=== PATIENT | male | born 1995 | race Caucasian/White ===

== ENCOUNTER 2024-07-01 11:16 | Emergency (ER) | payer OTHER, SELFPAY ==
--- NOTE | ~2024-07-01 | XR_ITS ---
Clinical Indication: Chest pain PA and lateral views of the chest: Comparison: None Findings: The lungs are clear, without evidence of focal consolidation or pleural effusion. Cardiome diastinal silhouette is within normal limits. Bones and soft tissues are unremarkable. Impression: Normal chest. Reviewed, dictated and finalized at location . Impression: Normal chest.
--- NOTE | 2024-07-01 11:18 | ECG_ITS ---
Test Date: 2024-07-01 11:22:55 Measurements Intervals [place] Rate: 70 P: 66 DC: 125 QRS: 75 QRSD: 90 T: 48 QT: 367 QTc: 399 Interpretive Statements SINUS RHYTHM NORMAL ELECTROCARDIOGRAM No previous ECG available for comparison Electronically Signed On 07-02-2024 07:23:01 CDT by Benedicto Paz M.D.
[2024-07-01 11:20] VITALS: BP 106/61; PULSE 67; RESP 16; TEMP 36.8; O2SAT 100
[2024-07-01 11:35] LABS: Basophils Percent Auto 0.9 % (0.2-1.2); Eosinophils Absolute Auto 0.1 K/mm3 (0-0.3); Eosinophils Percent Auto 1.5 % (0-4.4); Hematocrit 50.6 % (42.0-52.0); Hemoglobin 17.3 g/dL (14.0-18.0); Immature Granulocyte Absolute 0.01 K/mm3 (0.00-0.031); Immature Granulocyte Percent A 0.3 % (0-0.5); Lymphocytes Absolute Auto 1.56 K/mm3 (0.9-3.2); Lymphocytes Percent Auto 45.6 % (18.3-44.2); Mean Corpuscular HGB Conc 34.2 g/dl (32-36); Mean Corpuscular Hemoglobin 31.1 pg (26-34); Mean Platelet Volume 8.5 fl (7.4-10.4); Monocytes Absolute Auto 0.4 K/mm3 (0.1-0.6); Monocytes Percent Auto 12.3 % (2.6-8.5); Neutrophils Absolute Auto 1.4 K/mm3 (1.3-6.7); Neutrophils Percent Auto 39.4 % (45.5-73.1); Platelet Count Result 221 k/mm3 (150-375); Red Blood Count 5.56 M/mm3 (4.6-6.20); Red Cell Distribution Width 11.6 % (11.5-14.5); White Blood Count 3.4 K/mm3 (4.5-10.0)
[2024-07-01 11:47] LABS: Prothrombin Time 13.3 Seconds (11.1-14.7)
[2024-07-01 11:48] LABS: Partial Thromboplastin Time 30.4 Seconds (22.3-36.8)
[2024-07-01 11:50] LABS: Alanine Aminotransferase 30 U/L (6-50); Albumin Level 4.6 g/dL (3.5-5.1); Alkaline Phosphatase 54 U/L (38-126); Anion Gap 10 mmol/L (4-12); Aspartate Amino Transferase 31 U/L (17-59); Bilirubin,Total 0.6 mg/dL (0.2-1.3); Blood Urea Nitrogen 16 mg/dL (9-20); Calcium 9.1 mg/dL (8.4-10.2); Carbon Dioxide 32 mmol/L (22-30); Chloride 97 mmol/L (98-107); Estimated CRCL calculation 93 ml/min; Estimated Glomerular Filt Rate > 60; Glucose 87 mg/dL (65-110); Lipase 91 U/L (23-300); Potassium 3.8 mmol/L (3.4-5.0); Sodium 139 mmol/L (137-145)
[2024-07-01 12:01] LABS: Troponin I < 0.012 ng/mL (0.000-0.034)
--- NOTE | 2024-07-01 12:53 | ED.CHESTPAIN ---
HPI - Chest Pain General Chief Complaint: Chest Pain Stated Complaint: cp and palpitations Time Seen by Provider: 07/01/24 12:38 History of Present Illness HPI narrative: This is a 28-year-old otherwise healthy male who presents the emergency department for evaluation of chest pain, discomfort and palpitations since 8:00 p.m. the prior evening. Patient was recently diagnosed with symptomatic COVID 3 days prior and states that he has been having myalgias, fever, chills and sweats. He started developing chest discomfort which is abnormal for him associated dyspnea. Patient was concerned and wanted it evaluated today. Has been taking Tylenol, Motrin, Sudafed for believe mint of his COVID symptoms with resolution of his headache, congestion and myalgias however he still has persistent chest discomfort and dyspnea for the last several hours. No leg swelling or history of DVT/PE. No recent procedures or long travel. Was otherwise in his normal state of health. He has been diagnosed with COVID previously was asymptomatic at that time. No around with similar symptoms. Related Data Allergies Allergy/AdvReac Type Severity Reaction Status Date / Time No Known Allergies Allergy Verified 07/01/24 11:17 Review of Systems Review of Systems: As reviewed above in the HPI Exam Narrative: GENERAL: [Well-appearing, well-nourished, and in no acute distress.] HEAD: [Normocephalic, atraumatic.] EYES: [PERRLA and EOMI.] ENT: Nares clear, no rhinorrhea or epistaxis. Mucous membranes moist. NECK: Supple. CHEST: [Clear to auscultation. No respiratory distress.] Reproducible tenderness over the costochondral junctions anteriorly. No crepitus, no respiratory difficulty, no wheezing, rhonchi, rales HEART: [Regular rate and rhythm]. No murmur heard. [Normal peripheral pulses.] ABDOMEN: [Soft, nondistended], [nontender], [No rigidity or guarding] EXTREMITIES:[No edema.] No calf swelling or tenderness, full range of motion of the extremities. SKIN: Warm, dry, no rash. NEURO: [No focal deficits]. Alert and oriented [x3.] PSYCH: [Normal mood and affect.] Course Vital Signs Vital signs: Vital Signs Temperature 36.8 C 07/01/24 11:20 Pulse Rate 67 07/01/24 11:20 Respiratory Rate 16 07/01/24 11:20 Blood Pressure 106/61 07/01/24 11:20 Pulse Oximetry 100 07/01/24 11:20 Oxygen Delivery Room Air 07/01/24 11:20 Temperature 36.8 C 07/01/24 11:20 Pulse Rate 60 07/01/24 13:52 Respiratory Rate 16 07/01/24 13:52 Blood Pressure 135/79 07/01/24 13:52 Pulse Oximetry 97 07/01/24 13:52 Oxygen Delivery Room Air 07/01/24 13:01 MDM - Chest Pain MDM Narrative Medical decision making narrative: This is a 28-year-old male presenting for chest pain and dyspnea for last several hours that he states began intermittently and 8:00 p.m. last night. He was recently diagnosed with COVID on Monday and had improvement in his myalgias, headache, congestion with Tylenol Motrin and Sudafed however he is having persistent chest pain and dyspnea since this morning. He has a reassuring physical examination with normal vitals including no tachycardia, hypoxia or fever. Blood pressure within normal limits. Examination reveals no signs of blood clots in legs or evidence of DVT. Chest with clear auscultation without any accessory muscle use or wheezing, rhonchi or rales. Differential diagnosis at this time includes musculoskeletal chest pain, costochondritis, pneumonia from his COVID, less likely suspicious for ACS or pulmonary embolism. Cardiac workup was ordered in triage including a CBC, BMP, magnesium, chest x-ray, EKG and a troponin series and he was provided aspirin. On my assessment the patient he had improvement slightly from initial presentation but was still complaining of chest discomfort. He is given 15 mg of IM Toradol. Laboratory studies showed no leukocytosis or anemia. Electrolyte panel largely within normal limits,
[2024-07-01 13:01] VITALS: PULSE 66; O2SAT 98
[2024-07-01] MEDS: ASPIRIN 81 MG CHEWABLE TABLET 324 MG PO (13:05)
[2024-07-01] MEDS: KETOROLAC 30 MG/ML VIAL (*BKC) 15 MG IM (13:05)
[2024-07-01 13:34] LABS: D Dimer < 0.27 ug/mL (<0.48)
[2024-07-01 13:52] VITALS: BP 135/79; PULSE 60; RESP 16; O2SAT 97
[2024-07-01 14:19] VITALS: BP 138/78; PULSE 68; RESP 19; O2SAT 98
== END 2024-07-01 14:22 | disposition home or self-care (01) ==
PROVIDERS: Emergency Provider Student in an Organized Health Care Education/Training Program
DX: M94.0 Chondrocostal junction syndrome [Tietze] (principal); B34.9 Viral infection, unspecified
CPT/HCPCS: 36415; 71046; 80053; 83690; 84484; 85025; 85380; 85610; 85730; 93005; 96372; 99284; A9270; J1885